=== PATIENT | male | born 1955 | race African-American/Black ===

== ENCOUNTER 2017-05-22 13:17 | Emergency (ER) | payer OTHER ==
--- NOTE | 2017-05-22 13:42 | ER Document Report ---
ED Medical Screen (RME) - General Chief Complaint: Weakness Stated Complaint: WEAKNESS Time Seen by Provider: 05/22/17 13:26 Mode of Arrival: Ambulatory Information source: Patient Notes: 61 yr old male presents with his physicians concern for need for dialysis. Pt noted ot have worsening kidney function due ot htn pt is from [place] and just moved here with no physicians I have greeted and performed a rapid initial assessment of this patient. A comprehensive ED assessment and evaluation of the patient, analysis of test results and completion of the medical decision making process will be conducted by additional ED providers. PHYSICAL EXAMINATION: GENERAL: Well-appearing, well-nourished and in no acute distress. HEAD: Atraumatic, normocephalic. EYES: Pupils equal round extraocular movements intact, conjunctiva are normal. ENT: Nares patent NECK: Normal range of motion LUNGS: No respiratory distress Musculoskeletal: Normal range of motion NEUROLOGICAL: Normal speech, normal gait. PSYCH: Normal mood, normal affect. SKIN: Warm, Dry, normal turgor, no rashes or lesions noted. TRAVEL OUTSIDE OF THE [place] IN LAST 30 DAYS: No - Related Data Allergies/Adverse Reactions: No Known Allergies Allergy (Unverified 05/22/17 13:23) Past Medical History - Social History Chew tobacco use (# tins/day): No Frequency of alcohol use: None Drug Abuse: None - Past Medical History Cardiac Medical History: Reports: Hx Hypertension Endocrine Medical History: Reports: Hx Diabetes Mellitus Type 1 Renal/ Medical History: Reports: Hx End Stage Renal Disease. Denies: Hx Peritoneal Dialysis Past Surgical History: Reports: Hx Orthopedic Surgery Physical Exam - Vital signs Vitals: Temp Pulse Resp BP Pulse Ox 98.3 F 74 20 138/71 H 98 05/22/17 13:24 05/22/17 13:24 05/22/17 13:24 05/22/17 13:24 05/22/17 13:24 Course - Vital Signs Vital signs: Temp Pulse Resp BP Pulse Ox 98.3 F 74 20 138/71 H 98 05/22/17 13:24 05/22/17 13:24 05/22/17 13:24 05/22/17 13:24 05/22/17 13:24
[2017-05-22 13:58] LABS: ABSOLUTE EOSINOPHILS # (AUTO) 0.1 10^3/uL (0.0-0.6); ABSOLUTE MONOCYTES (AUTO) 0.4 10^3/uL (0.1-1.4); ABSOLUTE NEUT (AUTO) 2.9 10^3/uL (1.7-8.2); BASOPHILS % (AUTO) 0.8 % (0-2); EOSINOPHILS % (AUTO) 2.1 % (0-6); HEMATOCRIT 27.9 % (37.9-51.0); HEMOGLOBIN 9.6 g/dL (13.5-17.0); HGB HCT DIFFERENCE 0.9; LYMPHOCYTES % (AUTO) 22.7 % (13-45); MEAN CORPUSCULAR HGB CONC 34.4 g/dL (32.0-36.0); MEAN CORPUSCULAR VOLUME 84 fl (80-97); MONOCYTES % (AUTO) 9.3 % (3-13); RED BLOOD COUNT 3.31 10^6/uL (4.35-5.55); RED CELL DISTRIBUTION WIDTH 15.2 % (11.5-14.0); SEGMENTED NEUTROPHILS % (AUTO) 65.1 % (42-78); WHITE BLOOD COUNT 4.5 10^3/uL (4.0-10.5)
[2017-05-22 14:14] LABS: ALANINE AMINOTRANSFERASE 10 U/L (21-72); ALBUMIN 2.7 g/dL (3.5-5.0); ALKALINE PHOSPHATASE 56 U/L (38-126); ANION GAP 12 (5-19); ASPARTATE AMINO TRANSFERASE 12 U/L (17-59); BILIRUBIN,DIRECT 0.3 mg/dL (0.0-0.4); BILIRUBIN,TOTAL 0.3 mg/dL (0.2-1.3); BLOOD UREA NITROGEN 93 mg/dL (7-20); CARBON DIOXIDE 15 mmol/L (22-30); CHLORIDE 112 mmol/L (98-107); CREATININE RESULT 11.83 mg/dL (0.52-1.25); GLUCOSE 154 mg/dL (75-110); MAGNESIUM 1.6 mg/dL (1.6-2.3); POTASSIUM 5.2 mmol/L (3.6-5.0); SODIUM 139.3 mmol/L (137-145); TOTAL PROTEIN 5.5 g/dL (6.3-8.2)
--- NOTE | 2017-05-22 14:24 | ER Document Report ---
ED General - General Chief Complaint: Weakness Stated Complaint: WEAKNESS Time Seen by Provider: 05/22/17 13:26 Mode of Arrival: Ambulatory Information source: Patient Notes: This is a 61-year-old gentleman with a history of insulin requiring diabetes, hypertension, dyslipidemia and chronic kidney disease. The patient recently moved here from [place]. He was evaluated by his blending supervisor on May 20 and labs were sent at this time. He was called by his blending supervisor and told to go to the ER to get started on dialysis within the next few days for renal failure. The patient denies any shortness of breath, chest pain or abdominal pain. TRAVEL OUTSIDE OF THE [place] IN LAST 30 DAYS: No - HPI Onset: Last week Onset/Duration: Gradual Quality of pain: No pain Severity: None Pain Level: Denies Associated symptoms: denies: Chest pain, Fever, Shortness of breath Exacerbated by: Denies Relieved by: Denies Similar symptoms previously: Yes Recently seen / treated by doctor: Yes - Related Data Allergies/Adverse Reactions: No Known Allergies Allergy (Unverified 05/22/17 13:23) Past Medical History - General Information source: Patient - Social History Smoking Status: Never Smoker Cigarette use (# per day): No Chew tobacco use (# tins/day): No Frequency of alcohol use: None Drug Abuse: None Lives with: Family Family History: None Patient has suicidal ideation: No Patient has homicidal ideation: No - Past Medical History Cardiac Medical History: Reports: Hx Hypertension Endocrine Medical History: Reports: Hx Diabetes Mellitus Type 1 Renal/ Medical History: Reports: Hx End Stage Renal Disease. Denies: Hx Peritoneal Dialysis Past Surgical History: Reports: Hx Orthopedic Surgery Review of Systems - Review of Systems Constitutional: denies: Chills, Fever EENT: No symptoms reported Cardiovascular: No symptoms reported Respiratory: No symptoms reported Gastrointestinal: No symptoms reported Genitourinary: No symptoms reported. denies: Dysuria, Flank pain, Hematuria Male Genitourinary: No symptoms reported Musculoskeletal: No symptoms reported Skin: No symptoms reported Hematologic/Lymphatic: No symptoms reported Neurological/Psychological: No symptoms reported Physical Exam - Vital signs Vitals: Temp Pulse Resp BP Pulse Ox 98.3 F 74 20 138/71 H 98 05/22/17 13:24 05/22/17 13:24 05/22/17 13:24 05/22/17 13:24 05/22/17 13:24 Notes: Physical exam: GENERAL: 61-year-old man, alert and oriented 3, no acute distress. HEAD: Atraumatic, normocephalic. EYES: Pupils equal round and reactive to light, extraocular movements intact, sclera anicteric, conjunctiva are normal. ENT: TMs normal, nares patent, oropharynx clear without exudates. Moist mucous membranes. NECK: Normal range of motion, supple without obvious mass or JVD. LUNGS: Breath sounds clear to auscultation bilaterally and equal. No wheezes rales or rhonchi. HEART: Regular rate and rhythm without murmurs, rubs or gallops. ABDOMEN: Soft, normoactive bowel sounds. No tenderness to palpation. No guarding, no rebound. No masses appreciated. EXTREMITIES: Normal range of motion, no pitting or edema. No clubbing or cyanosis. NEUROLOGICAL: Cranial nerves II through XII grossly intact. Normal speech, moving all extremities. PSYCH: Normal mood, normal affect. SKIN: Warm, Dry, normal turgor, no rashes or lesions noted. Course - Re-evaluation Re-evalutation: 05/22/17 15:57 Note: Clinically, the patient looks quite stable and there is no indication for emergent dialysis. His EKG looks good, his lungs are clear, his potassium is okay and his mental status is normal. We do not have any nephrology production consultant here, so I called [facility] and spoke to Dr. García who is willing to see the patient in the office tomorrow. I will still give the patient the number for the local blending supervisor out of convenience, but I have recommended he go to Dr. García's office tomorrow if he is unable to get an appointment tomorrow locally. The patient was given IV calcium while in the emergency room. - Vital Signs Vital signs: Temp Pulse Resp BP Pulse Ox 98.3 F 74 15 157/78 H 97 05/22/17 13:24 05/22/17 13:24 05/22/17 14:01 05/22/17 14:01 05/22/17 14:01 - Laboratory Result Diagrams: 05/22/17 13:40 05/22/17 13:40 Laboratory results interpreted by me: 05/22/17 05/22/17 05/22/17 13:40 13:40 14:01 RBC 3.31 L Hgb 9.6 L Hct 27.9 L RDW 15.2 H Potassium 5.2 H Chloride 112 H Carbon Dioxide 15 L BUN 93 H Creatinine 11.83 H Est GFR ( Amer) 5 L Est GFR (Non-Af Amer) 4 L Glucose 154 H Calcium 6.4 L* AST 12 L ALT 10 L Total Protein 5.5 L Albumin 2.7 L Urine Protein >=500 H Urine Glucose (UA) 150 H Urine Blood SMALL H - EKG Interpretation by Me Rate: Normal Rhythm: NSR - EKG shows normal sinus rhythm with a ventricular rate of 71, no acute ST-T wave changes Discharge - Discharge Clinical Impression: Chronic renal failure Condition: Stable Disposition: HOME, SELF-CARE Additional Instructions: [facility]. The examination and treatment you have received in the Emergency Department today has been rendered on an emergency basis only and is not intended to be a substitute for complete medical care. You should contact your follow-up physician as it is important that he or she examine you for any new or remaining problems. If given a copy of any lab tests or radiology reports, please bring them with you when you see your physician. If your problem worsens or new symptoms appear and you are unable to arrange prompt follow-up care, return to the Emergency Department. Specific signs to look out for: Shortness of breath, weakness, chest pain or any concerns getting worse. The office of Dr. Virgilio Moore: Any other instructions: 1. Call the office of Dr. Virgilio Moore: This is the number for the kidney doctor in [facility]. Tell the medical receptionist assistant that you were in the emergency room that yo have chronic kidney failure and that your kidney doctor from there [place] told he need dialysis in the next few days. Tell them you were in the emergency room today and the ER doctor wanted you seen for evaluation for hemodialysis tomorrow. 2. If you are unable to get a hold of this doctor, Call Dr Mercer: this is a kidney doctor in [place]. The office number is [phone]. I have spoken with Dr. García and he said that if you call the office, he can have an appointment for you by the afternoon tomorrow. He stated that he could have you evaluated for dialysis on Tuesday or Tuesday. Dr. Mercer's office is in [place]. His field health officer is Lina Euceda and Dr. García stated to me that he will let Lina euceda know about you tomorrow at 8 AM. Referrals: Tina MOORE MD [ACTIVE STAFF] - Follow up as needed (This is the number the kidney doctor)
[2017-05-22] MEDS ORDERED: CALCIUM GLUCONATE 1000 MG/10 ML INJ IV ONE ×2 (14:25→14:26)
[2017-05-22 14:26] LABS: CALCIUM 6.4 mg/dL (8.4-10.2)
[2017-05-22 14:27] LABS: AMORPHOUS SEDIMENT,URINE TRACE /HPF; APPEARANCE,URINE SLIGHTLY-CLOUDY; BILIRUBIN,URINE NEGATIVE (NEGATIVE); GLUCOSE, URINE 150 mg/dL (NEGATIVE); KETONES,URINE NEGATIVE (NEGATIVE); LEUKOCYTE ESTERASE,URINE NEGATIVE (NEGATIVE); NITRITE,URINE NEGATIVE (NEGATIVE); PROTEIN,URINE >=500 mg/dL (NEGATIVE); UROBILINOGEN,URINE NEGATIVE mg/dL (<2.0)
--- NOTE | 2017-05-22 16:22 | EKG REPORT ---
SEVERITY:- BORDERLINE ECG - SINUS RHYTHM BORDERLINE LEFT AXIS DEVIATION CONSIDER ANTERIOR INFARCT : Confirmed by: Sky Alvarez MD 22-May-2017 16:21:48
[2017-05-22 16:48] VITALS: BP 171/85
== END 2017-05-22 16:54 | disposition home or self-care (01) ==
LOC: ER 13:17
DX: R53.1 Weakness (principal); E10.22 Type 1 diabetes mellitus with diabetic chronic kidney disease; I12.0 Hypertensive chronic kidney disease with stage 5 chronic kidney disease or end stage renal disease; N18.6 End stage renal disease; Z79.4 Long term (current) use of insulin
CPT/HCPCS: 93005; 99285; 96365; 96366; 36415; 83735; 85025; 80053; 81001; 93010; J0610

== ENCOUNTER 2017-10-25 15:47 | Emergency (ER) | payer MEDICARE, OTHER ==
--- NOTE | 2017-10-25 16:23 | ER Document Report ---
ED Medical Screen (RME) - General Chief Complaint: Back pain, chills, body aches Stated Complaint: BACK PAIN, BODY ACHES Time Seen by Provider: 10/25/17 16:18 Mode of Arrival: Ambulatory Information source: Patient Notes: 61-year-old male who does peritoneal dialysis at home presented with complaints of chills and shakiness of 3 hour duration after having a sample taken off his abdomen today at his doctor's office I have greeted and performed a rapid initial assessment of this patient. A comprehensive ED assessment and evaluation of the patient, analysis of test results and completion of the medical decision making process will be conducted by additional ED providers. PHYSICAL EXAMINATION: GENERAL: Well-appearing, well-nourished and in no acute distress. HEAD: Atraumatic, normocephalic. EYES: Pupils equal round extraocular movements intact, conjunctiva are normal. ENT: Nares patent Abdominal: Distended dialysis access NECK: Normal range of motion LUNGS: No respiratory distress Musculoskeletal: Normal range of motion NEUROLOGICAL: Normal speech, normal gait. PSYCH: Normal mood, normal affect. SKIN: Warm, Dry, normal turgor, no rashes or lesions noted. TRAVEL OUTSIDE OF THE [place] IN LAST 30 DAYS: No - Related Data Allergies/Adverse Reactions: clonidine Allergy (Verified 10/25/17 16:12) Past Medical History - Social History Frequency of alcohol use: None Drug Abuse: None - Past Medical History Cardiac Medical History: Reports: Hx Hypertension Endocrine Medical History: Reports: Hx Diabetes Mellitus Type 1 Renal/ Medical History: Reports: Hx End Stage Renal Disease, Hx Peritoneal Dialysis - at [facility] Past Surgical History: Reports: Hx Orthopedic Surgery Physical Exam - Vital signs Vitals: Temp Pulse Resp BP Pulse Ox 99.3 F 116 H 24 H 197/84 H 98 10/25/17 16:01 10/25/17 16:01 10/25/17 16:01 10/25/17 16:01 10/25/17 16:01 Course - Vital Signs Vital signs: Temp Pulse Resp BP Pulse Ox 99.3 F 116 H 24 H 197/84 H 98 10/25/17 16:01 10/25/17 16:01 10/25/17 16:01 10/25/17 16:01 10/25/17 16:01
[2017-10-25 16:47] LABS: VENOUS BLOOD BASE EXCESS 1.6 mmol/L; VENOUS BLOOD HCO3 27.2 mmol/L (20-32); VENOUS BLOOD PCO2 47.2 mmHg (35-63); VENOUS BLOOD PH 7.38 (7.30-7.42)
[2017-10-25 16:52] LABS: ABSOLUTE LYMPHOCYTES (AUTO) 0.2 10^3/uL (0.5-4.7); ABSOLUTE NEUT (AUTO) 2.6 10^3/uL (1.7-8.2); BASOPHILS % (AUTO) 0.2 % (0-2); EOSINOPHILS % (AUTO) 0.8 % (0-6); HEMATOCRIT 31.8 % (37.9-51.0); HEMOGLOBIN 10.5 g/dL (13.5-17.0); LYMPHOCYTES % (AUTO) 6.4 % (13-45); MEAN CORPUSCULAR HEMOGLOBIN 28.4 pg (27.0-33.4); MEAN CORPUSCULAR HGB CONC 33.1 g/dL (32.0-36.0); MEAN CORPUSCULAR VOLUME 86 fl (80-97); MONOCYTES % (AUTO) 0.8 % (3-13); PLATELET COUNT 174 10^3/uL (150-450); RED BLOOD COUNT 3.71 10^6/uL (4.35-5.55); RED CELL DISTRIBUTION WIDTH 15.3 % (11.5-14.0); SEGMENTED NEUTROPHILS % (AUTO) 91.8 % (42-78); TOTAL CELLS COUNTED % (AUTO) 100 %; WHITE BLOOD COUNT 2.9 10^3/uL (4.0-10.5)
--- NOTE | 2017-10-25 16:55 | RADIOLOGY REPORT (SQ) ---
EXAM DESCRIPTION: CHEST PA/LAT COMPLETED DATE/TIME: 10/25/2017 4:43 pm REASON FOR STUDY: weakness fever COMPARISON: None. NUMBER OF VIEWS: Two view. TECHNIQUE: Frontal and lateral radiographic views of the chest acquired. LIMITATIONS: None. FINDINGS: LUNGS AND PLEURA: No opacities, masses or pneumothorax. No pleural effusion. MEDIASTINUM AND HILAR STRUCTURES: No masses or contour abnormalities. HEART AND VASCULATURE: Heart normal size. No evidence for failure. BONY STRUCTURES: No acute findings. HARDWARE: PermCath on the right with the tip projected over the right atrium. OTHER: No other significant finding. IMPRESSION: No active cardiopulmonary disease. PermCath on the right. TECHNICAL DOCUMENTATION: JOB ID: [id number] [employer]- All Rights Reserved Reading location - IP/workstation name: [email or web address]
[2017-10-25 17:03] LABS: ALANINE AMINOTRANSFERASE 17 U/L (21-72); ALBUMIN 3.8 g/dL (3.5-5.0); ALKALINE PHOSPHATASE 67 U/L (38-126); ANION GAP 14 (5-19); ASPARTATE AMINO TRANSFERASE 17 U/L (17-59); BILIRUBIN,DIRECT 0.5 mg/dL (0.0-0.4); BILIRUBIN,TOTAL 0.6 mg/dL (0.2-1.3); BLOOD UREA NITROGEN 63 mg/dL (7-20); CALCIUM 7.2 mg/dL (8.4-10.2); CARBON DIOXIDE 25 mmol/L (22-30); CHLORIDE 102 mmol/L (98-107); GLUCOSE 106 mg/dL (75-110); POTASSIUM 3.5 mmol/L (3.6-5.0); SODIUM 141.3 mmol/L (137-145); TOTAL PROTEIN 6.8 g/dL (6.3-8.2)
[2017-10-25 17:06] LABS: INTERNATIONAL RATION (INR) 0.93; PROTHROMBIN TIME 13.1 SEC (11.4-15.4)
--- NOTE | 2017-10-25 17:49 | ER Document Report ---
ED General - General Mode of Arrival: Ambulatory TRAVEL OUTSIDE OF THE [place].S. IN LAST 30 DAYS: No <HERMILO OREILLY - Last Filed: 10/25/17 23:22> <CATARINA HESS - Last Filed: 10/25/17 23:40> - General Chief Complaint: Back pain, chills, body aches Stated Complaint: BACK PAIN, BODY ACHES Time Seen by Provider: 10/25/17 16:18 Notes: Patient is a 61-year-old male who currently does peritoneal dialysis at home ( started approximately one month ago) with a history HTN and diabetes presents to the emergency department complaining of bilateral flank pain as well as chills and shakiness onset today. Patient states that he visited his [employer] supervisor today complaining of a foul taste in his mouth and they proceeded to take fluid out of his catheter. 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 Patient also complains of vomiting and diarrhea. (HERMILO OREILLY) - Related Data Allergies/Adverse Reactions: clonidine Allergy (Verified 10/25/17 16:12) Past Medical History - General Information source: Patient - Social History Smoking Status: Current Every Day Smoker Frequency of alcohol use: None Drug Abuse: None Family History: None Patient has suicidal ideation: No Patient has homicidal ideation: No - Past Medical History Cardiac Medical History: Reports: Hx Hypertension Endocrine Medical History: Reports: Hx Diabetes Mellitus Type 1 Renal/ Medical History: Reports: Hx End Stage Renal Disease, Hx Peritoneal Dialysis - at [facility] Past Surgical History: Reports: Hx Orthopedic Surgery <HERMILO OREILLY - Last Filed: 10/25/17 23:22> Review of Systems - Review of Systems Constitutional: No symptoms reported EENT: No symptoms reported Cardiovascular: No symptoms reported Respiratory: No symptoms reported Gastrointestinal: See HPI, Nausea, Vomiting Genitourinary: No symptoms reported Male Genitourinary: No symptoms reported Musculoskeletal: See HPI, Back pain Skin: No symptoms reported Hematologic/Lymphatic: No symptoms reported Neurological/Psychological: No symptoms reported -: Yes All other systems reviewed and negative <HERMILO OREILLY - Last Filed: 10/25/17 23:22> Physical Exam <HERMILO OREILLY - Last Filed: 10/25/17 23:22> <CATARINA HESS - Last Filed: 10/25/17 23:40> - Vital signs Vitals: Temp Pulse Resp BP Pulse Ox 99.3 F 116 H 24 H 197/84 H 98 10/25/17 16:01 10/25/17 16:01 10/25/17 16:01 10/25/17 16:01 10/25/17 16:01 - Notes Notes: GENERAL: Alert, interacts well. No acute distress. HEAD: Normocephalic, atraumatic. EYES: Pupils equal, round, and reactive to light. Extraocular movements intact. ENT: Oral mucosa moist, tongue midline. NECK: Full range of motion. Supple. Trachea midline. LUNGS:Well-appearing tunnel port located on the right upper chest wall, no induration no erythema. Clear to auscultation bilaterally, no wheezes, rales, or rhonchi. No respiratory distress. HEART: Mild tachycardia. No murmurs, gallops, or rubs. ABDOMEN: Soft, non-tender. Non-distended. Bowel sounds present in all 4 quadrants. EXTREMITIES: Moves all 4 extremities spontaneously. No edema. NEUROLOGICAL: Alert and oriented x3. Normal speech. SKIN: Warm, dry, normal turgor. No rashes or lesions noted. BACK: No CVA tenderness. (HERMILO OREILLY) Course - Laboratory Result Diagrams: 10/25/17 16:30 10/25/17 16:30 - Consults Dr. Gonzalez Time consulted: 18:25 - Dr. Gonzalez, associate at the patients [employer] supervisor office, states no cell count with peritoneal fluid sample. <HERMILO OREILLY - Last Filed: 10/25/17 23:22> - Laboratory Result Diagrams: 10/25/17 16:30 10/25/17 16:30 <CATARINA HESS - Last Filed: 10/25/17 23:40> - Re-evaluation Re-evalutation: 10/25/17 19:[address] of abdomen pelvis is patient has had throbbing bilateral flank pain history of hypertension which caused him to be on peritoneal dialysis. Rule out AAA and other acute pathology of abdomen at this time. No evidence of infection no white cell count per Dr. Gonzalez as previously discussed under consults. Patient does have mildly elevated lactic acid but has normal vitals no white cell count and does have elevated creatinine and BUN. I feel his lactic acid is equivocal and being caused by his elevated BUN and uremia. His CT abdomen is negative will provide antispasmodics for his throbbing back pain and will have him follow-up with his cranberry farm supervisor for his next scheduled appointment. 10/25/17 21:31 Urine shows no signs of infection. Discussed findings with patient will be discharged with antinausea medications as well as antispasmodics for his lower back pain. He is to follow-up with his his cranberry farm supervisor regarding his kidney dysfunction and his elevated BUN and creatinine. Discussed if he begins to develop any fevers or worsening symptoms return to the emergency department for reevaluation. (CATARINA HESS) - Vital Signs Vital signs: Temp Pulse Resp BP Pulse Ox 99.6 F 97 20 173/94 H 96 10/25/17 22:08 10/25/17 22:08 10/25/17 22:08 10/25/17 22:08 10/25/17 22:08 - Laboratory Laboratory results interpreted by me: 10/25/17 10/25/17 10/25/17 16:30 16:30 16:30 WBC 2.9 L RBC 3.71 L Hgb 10.5 L Hct 31.8 L RDW 15.3 H Seg Neutrophils % 91.8 H Lymphocytes % 6.4 L Monocytes % 0.8 L Absolute Lymphocytes 0.2 L Absolute Monocytes 0.0 L Potassium 3.5 L BUN 63 H Creatinine 24.02 H Est GFR ( Amer) 2 L Est GFR (Non-Af Amer) 2 L Lactic Acid 2.6 H Calcium 7.2 L Direct Bilirubin 0.5 H ALT 17 L Urine Protein Urine Glucose (UA) 10/25/17 21:15 WBC RBC Hgb Hct RDW Seg Neutrophils % Lymphocytes % Monocytes % Absolute Lymphocytes Absolute Monocytes Potassium BUN Creatinine Est GFR ( Amer) Est GFR (Non-Af Amer) Lactic Acid Calcium Direct Bilirubin ALT Urine Protein >=500 H Urine Glucose (UA) 50 H Discharge <HERMILO OREILLY - Last Filed: 10/25/17 23:22> <CATARINA HESS - Last Filed: 10/25/17 23:40> - Discharge Clinical Impression: Back muscle spasm Disposition: HOME, SELF-CARE Instructions: Low Back Pain ([facility]) Additional Instructions: Please follow-up with your cran[employer] supervisor and let them know of your emergency department stay and reevaluation. Please return the emergency department sooner if you begin to experience worsening symptoms or any fevers. Blood and urine cultures were drawn today and if there were any abnormal results to be called. Prescriptions: Diazepam [Valium 5 mg Tablet] 5 mg PO ASDIR PRN #8 tablet PRN Reason: Ondansetron [Zofran Odt 4 mg Tablet] 1 tab PO ASDIR PRN #15 tab.rapdis PRN Reason: For Nausea/Vomiting Scribe Attestation: 10/25/17 23:40 I personally performed the services described documentation, reviewed and edited the documentation which was dictated to describe my presence, and it accurately records my words and actions. (CATARINA HESS) Scribe Documentation - Scribe Written by Scribe:: Adria Foster, 10/25/2017 17:58 acting as scribe for :: Jonathan <HERMILO OREILLY - Last Filed: 10/25/17 23:22>
--- NOTE | 2017-10-25 19:56 | RADIOLOGY REPORT (SQ) ---
EXAM DESCRIPTION: CT ABD/PELVIS NO ORAL OR IV COMPLETED DATE/TIME: 10/25/2017 7:15 pm REASON FOR STUDY: flank pain, hx of hypertension, r/o anuresym, ston COMPARISON: None. TECHNIQUE: CT scan of the abdomen and pelvis performed without intravenous or oral contrast. Images reviewed with lung, soft tissue, and bone windows. Reconstructed coronal and sagittal MPR images revi ewed. All images stored on PACS. All CT scanners at this facility use dose modulation, iterative reconstruction, and/or weight based d osing when appropriate to reduce radiation dose to as low as reasonably achievable (ALARA). [facility]: Dose Right [facility]: CareDose [facility]: Dose Right [facility]: Teradose 4D [facility]: [employer] RADIATION DOSE: CT Rad equipment meets quality standard of care and radiation dose reduction techniq ues were employed. CTDIvol: 9.3 mGy. DLP: 569 mGy-cm.mGy. LIMITATIONS: None. FINDINGS: LOWER CHEST: No significant findings. No nodules or infiltrates. NON-CONTRASTED LIVER, SPLEEN, ADRENALS: Evaluation limited by lack of IV contrast. No identified sign ificant masses. PANCREAS: No masses. No peripancreatic inflammatory changes. GALLBLADDER: No identified stones by CT criteria. No inflammatory changes to suggest cholecystitis. RIGHT KIDNEY AND URETER: Perinephric fluid in renal edema. No suspicious masses. Assessment limited by lack of IV contrast. No significant calcifications. No hydronephrosis or hydroureter. LEFT KIDNEY AND URETER: Perinephric fluid and renal edema. No suspicious masses. Assessment limited by lack of IV contrast. No significant calcifications. No hydronephrosis or hydroureter. AORTA AND RETROPERITONEUM: No aneurysm. No retroperitoneal masses or adenopathy. BOWEL AND PERITONEAL CAVITY: No obvious masses or inflammatory changes. Extensive free fluid. Presu mably from peritoneal dialysis. . APPENDIX: Not visualized. PELVIS, BLADDER, AND ABDOMINAL WALL:Free fluid. Peritoneal dialysis catheter. BONES: No significant findings. OTHER: No other significant finding. IMPRESSION: Extensive ascites presumably related to peritoneal dialysis. Peritoneal dialysis catheter. Perinephric edema and perinephric fluid bilaterally without hydronephrosis. COMMENT: Quality ID # [id number]: Final reports with documentation of one or more dose reduction techniques (e.g., Automated exposure control, adjustment of the mA and/or kV according to patient size, use of iterative reconstruction technique) TECHNICAL DOCUMENTATION: JOB ID: [id number] [employer] [facility] [employer]- All Rights Reserved Reading location - IP/workstation name: [email or web address]
--- NOTE | 2017-10-25 20:40 | EKG REPORT ---
SEVERITY:- ABNORMAL ECG - SINUS TACHYCARDIA LEFT ATRIAL ABNORMALITY LEFT VENTRICULAR HYPERTROPHY BORDERLINE PROLONGED QT INTERVAL : Confirmed by: Sky Alvarez MD 25-Oct-2017 20:39:58
[2017-10-25 21:28] LABS: APPEARANCE,URINE SLIGHTLY-CLOUDY; BILIRUBIN,URINE NEGATIVE (NEGATIVE); COLOR,URINE YELLOW; GLUCOSE, URINE 50 mg/dL (NEGATIVE); KETONES,URINE NEGATIVE (NEGATIVE); LEUKOCYTE ESTERASE,URINE NEGATIVE (NEGATIVE); NITRITE,URINE NEGATIVE (NEGATIVE); PROTEIN,URINE >=500 mg/dL (NEGATIVE); URINE SPECIFIC GRAVITY 1.014; UROBILINOGEN,URINE NEGATIVE mg/dL (<2.0)
[2017-10-25] MEDS ORDERED: ONDANSETRON ODT 4 MG TAB (6 TAB/ER DISP) PO PRN (22:03)
[2017-10-25] MEDS ORDERED: DIAZEPAM 5 MG TABLET PO ONE (22:07)
[2017-10-25 22:10] VITALS: BP 173/94
== END 2017-10-25 22:10 | disposition home or self-care (01) ==
LOC: ER 15:47
DX: M62.830 Muscle spasm of back (principal); M54.9 Dorsalgia, unspecified; R10.9 Unspecified abdominal pain; R11.10 Vomiting, unspecified; R19.7 Diarrhea, unspecified; N18.6 End stage renal disease; I12.0 Hypertensive chronic kidney disease with stage 5 chronic kidney disease or end stage renal disease; E10.22 Type 1 diabetes mellitus with diabetic chronic kidney disease; F17.200 Nicotine dependence, unspecified, uncomplicated; Z99.2 Dependence on renal dialysis
CPT/HCPCS: 93005; 99285; 36415; 87040; 87086; 85025; 85610; 80053; 81001; 82803; 83605; 71046; 74176; 93010; A9270 ×2